=== PATIENT | male | born 1975 | race Asian ===

== ENCOUNTER → 2023-12-04 06:53 | Outpatient (REF) | payer OTHER, SELFPAY ==
--- NOTE | 2023-12-22 09:32 | OID.L.PAT ---
Pulmonary Nodule Pat Letter
- -
12/22/23
TISH MORALES
[address]
[place], [place] [address]
Kelsi WINSTON,
A pulmonary nodule was seen on an imaging study done by [facility]. This was reviewed by the [facility] Pulmonary Nodule Advisory Board and the following recommendation was made:
Recommendation: CT Chest - now
If you have any questions, please do not hesitate to contact your primary care physician. If you are in need of a Physician, you can go to [email or web address] and click on 'Find a Provider'. Type 'Family Medicine' in the search.
Oncology Nurse Navigator
[facility]
[phone]
--- NOTE | 2023-12-22 09:33 | OID.L.REC ---
Pulmonary Nodule Follow Up
- Recommendation
12/22/23
Pulmonary Nodule Review Recommendations
Your patient, TISH MORALES, had a pulmonary nodule seen on an imaging study done on 12/04/23 in the [facility] Outpatient Radiology Department.
This was reviewed by the [facility] Pulmonary Nodule Advisory Board and the following recommendation was made:
Recommendation: CT Chest - now
If you have any questions please do not hesitate to contact us.
Sincerely,
Oncology Nurse Navigator
[facility]
[phone]
== END ==
LOC: RAD 06:53
PROVIDERS: ATTENDING PHYSICIAN Specialist; FAMILY PHYSICIAN Family Medicine
DX: R31.29 Other microscopic hematuria (principal)
CPT/HCPCS: 74176